=== PATIENT | female | born 1985 | race African-American/Black ===

== ENCOUNTER 2017-12-12 00:36 | Emergency (ER) | payer MEDICARE, OTHER ==
[~2017-12-12] VITALS: Ht 175.3 cm; Wt 90.7 kg
== END 2017-12-12 00:54 | disposition home or self-care (01) ==
LOC: ER 00:36
DX: N95.1 Menopausal and female climacteric states (principal); E07.9 Disorder of thyroid, unspecified; I10 Essential (primary) hypertension; F17.210 Nicotine dependence, cigarettes, uncomplicated

== ENCOUNTER 2017-12-12 16:22 | Emergency (ER) | payer OTHER ==
[~2017-12-12] VITALS: Ht 175.3 cm; Wt 97.5 kg
--- OUTSIDE RECORDS SUMMARY | 2017-12-12 16:24 | XMS REPORT | Continuity of Care Document ---
Author Author [facility] Organization [facility] Address [address] [place] [address] Phone Unavailable Care Team Providers Care Contract Law Specialist Name Role Phone NO, PCP PCP Unavailable Insurance Providers Guarantor Chanelle Ramos Address [address] [place] [address] Email NONE Payer [facility] Policy Number [id number] Subscriber's Name Curt Ramosroro Pena Relationship 18 Self / Same As Patient Effective Date 16 Advance Directives Directive Response Recorded Date/Time Does the patient have an advance directive? No 08/07/17 6:26am If yes, is advance directive on file with [facility]? No 08/07/17 6:26am If not on file with [facility] will patient provide a copy? No 12/12/17 12:40am Do you have a Directive to Physician? No 12/12/17 12:40am Do you have a Medical Power of Electrical Engineering Teacher? No 12/12/17 12:40am Do you have an out of hospital Do Not Resuscitate Order? No 12/12/17 12:40am Do you have any special needs we should be aware of? No 12/12/17 12:40am Do you have a support person here with you today? No 12/12/17 12:40am Did patient receive Notice of Privacy Practices? Yes 12/12/17 12:40am Did patient receive patient rights and responsibilities? Yes 12/12/17 12:40am Problems No problem information available. Medications No medication information available. Social History No social history information available. Hospital Discharge Instructions No hospital discharge instruction information available. Plan of Care Discharge Date 12/12/17 12:54am Disposition ELOPED Condition at Discharge Stable Forms Provided Work/School Excuse Prescriptions See Medication Section Functional Status No functional status information available. Allergies, Adverse Reactions, Alerts No known allergies. Immunizations No immunization information available. Vital Signs Acute Vital Signs Vital Response Date/Time Height 5 ft 9 in 12/12/2017 12:46am Weight 200 lb 12/12/2017 12:46am Body Mass Index 29.5 kg/m^2 12/12/2017 12:46am Results No relevant diagnostic test, laboratory data and/or discharge summary information available. Procedures No procedure information available. Encounters Encounter Location Arrival/Admit Date Discharge/Depart Date Attending Provider Departed Emergency Room [facility] 12/12/17 12:36am 12/12 12:54am JOSELITO WHITESIDE MD Departed Emergency Room [facility] 08/06/17 6:51pm 10:29pm SACHIN YADAV MD
== END 2017-12-12 18:35 | disposition left against medical advice (07) ==
LOC: ER 16:22
DX: Z53.21 Procedure and treatment not carried out due to patient leaving prior to being seen by health care provider (principal)